=== PATIENT | male | born 1945 | race Caucasian/White ===

== ENCOUNTER 2018-06-07 15:13 | Emergency (ER) | payer OTHER ==
--- OUTSIDE RECORDS SUMMARY | 2018-06-07 15:15 | XMS REPORT | Clinical Summary ---
:1945 Author Organization [facility] Address [address] [place] [address] Care Team Providers Name Role Phone Asked, No Pcp Primary Care Provider Unavailable Allergies No Known Allergies Current Medications Prescription Sig. Disp. Refills Start End Date Status Date amitriptyline TK 1 T PO QPM 0 Active (ELAVIL) 100 MG 6 tablet naproxen TK 1 T PO TID 0 Active (NAPROSYN) 375 MG 7 tablet HYDROcodone-aceta TK 1 T PO QID 0 Active minophen (NORCO) 7 10-325 mg per tablet gabapentin TK 1 C PO TID 0 Active (NEURONTIN) 300 7 mg capsule DULoxetine Take 60 mg by mouth Active (CYMBALTA) 60 MG daily. capsule rosuvastatin Take 10 mg by mouth Active (CRESTOR) 10 MG daily. tablet testosterone INJECT 1 ML 0 Active cypionate INTRAMUSCULARLY Q 2 7 (DEPOTESTOTERONE WEEKS. CYPIONATE) 200 mg/mL injection tiZANidine Active (ZANAFLEX) 4 MG 8 tablet zolpidem CR TK 1 T PO HS PRN 0 Active (AMBIEN CR) 12.5 7 MG CR tablet tamsulosin Take 1 capsule (0.4 90 capsule 3 Active (FLOMAX) 0.4 mg mg total) by mouth 8 capsule,extended daily. release 24hrIndications: Enlarged prostate with urinary obstruction tamsulosin TAKE 1 CAPSULE(0.4 90 capsule 0 Active (FLOMAX) 0.4 mg MG) BY MOUTH DAILY 8 capsule,extended release 24hr tamsulosin Take 1 capsule (0.4 90 capsule 3 12/27/19 Discontinued (FLOMAX) 0.4 mg mg total) by mouth 7 18 capsule,extended daily. release 24hrIndications: Enlarged prostate with urinary obstruction sildenafil, Take 1 tablet (20 30 tablet 11 01/27/20 antihypertensive, mg total) by mouth 8 18 (REVATIO) 20 mg daily for 30 days. 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 Encounters Date Type Specialty Care Team Description 02/22/2018 Refill Urology Darien Montiel MD 12/28/2017 Telephone Urology Darien Montiel MD 12/27/2017 Office Visit Urology Darien Montiel MD Testicular hypofunction (Primary Dx); Benign non-nodular prostatic hyperplasia with lower urinary tract symptoms; Impotence of organic origin; Enlarged prostate with urinary obstruction after 06/06/2017 Social History Tobacco Use Types Packs/Day Years Used Date Never Smoker Smokeless Tobacco: Never Used Alcohol Use Drinks/Week oz/Week Comments No Sex Assigned at Date Recorded Not on file Last Filed Vital Signs Vital Sign Reading Time Taken Blood Pressure 113/83 12/27/2017 12:57 PM [employer]ITY TEAM [employer]AD Pulse 95 12/27/2017 12:57 PM [employer]ITY TEAM [employer]AD Temperature - - Respiratory Rate 18 12/27/2017 12:57 PM [employer]ITY TEAM [employer]AD Oxygen Saturation - - Inhaled Oxygen Concentration - - Weight 113 kg (250 lb) 12/27/2017 12:57 PM [employer]ITY TEAM LEAD Height 182.9 cm (6') 12/27/2017 12:57 PM [employer]URITY TEAM LEAD Body Mass Index 33.91 12/27/2017 12:57 PM [employer]URITY TEAM LEAD Plan of Treatment Date Type Specialty Care Team Description 01/02/2019 Office [place] [address] [address] [address] [place] [address] Health Maintenance Due Date Last Done Comments COLON CANCER SCREENING 1996 SHINGRIX VACCINE (#1) 1996 ZOSTER VACCINE 2006 PNEUMOCOCCAL POLYSACCHARIDE VACCINE AGE 65 AND OVER 2011 PNEUMOCOCCAL-13 2011 INFLUENZA VACCINE 06/26/2018 Procedures Procedure Name Priority Date/Time Associated Diagnosis Comments PROSTATE SPECIFIC Routine 12/27/2017 1:18 PM Benign non-nodular Results for this ANTIGEN [employer]ITY TEAM LEAD prostatic procedure are in hyperplasia with the results lower urinary tract section. symptoms after 06/06/2017 Results Prostate specific antigen (12/27/2017 1:18 PM) PSA 0.4 < OR=4.0 ng/mL [facility] Comment: The total PSA value from this assay system is standardized against the WHO standard. The test result will be approximately 20% lower when compared to the equimolar-standardized total PSA (Leah Raleigh). Comparison of serial PSA results should be interpreted with this fact in mind. This test was performed using the Siemens chemiluminescent method. Values obtained from different assay methods cannot be used interchangeably. PSA levels, regardless of value, should not be interpreted as absolute evidence of the presence or absence of disease. Specimen Blood Resulting Agency Comment Performing Organization Information: Site ID: [id number] Name: [facility] Address: [address] [place] [id number] Director: Kalani Haney MD Performing Organization Address City/State/Zipcode Phone Number [place] [phone] after 06/06/2017 Insurance Payer Benefit Plan / Group Subscriber ID Type Phone Address AETNA AETNA HMO,POS,EPO, MC/EC xxxxxxxxx HMO MEDICARE MEDICARE PART A AND B xxxxxxxxxx Medicare [place], [place] Work: [address] [phone] [address] Home: [phone] [facility]
--- NOTE | 2018-06-07 17:29 | EDPHYS ---
Physician Documentation [facility] Name: Clemente Hearn Age: 72 yrs Sex: Male : 1945 Arrival Date: 06/07/2018 Time: 15:16 Bed 7 Private MD: Reynaldo Moses ED Physician Rudy Booth HPI: 06/07 17:00 This 72 yrs old Male presents to ER via Ambulatory with complaints of pm1 Shoulder Pain, Arm Pain. 17:00 The patient or guardian complains of pain. right shoulder. Context: The problem was pm1 sustained at home, resulted from an unknown reason, The patient experiences decreased range of motion, The patient reports no obvious deformity. Onset: The symptoms/episode began/occurred 2 day(s) ago. Modifying factors: the symptoms are alleviated by nothing. Has been taking pain medications at home without improvement. Associated signs and symptoms: Pertinent negatives: abdominal pain, chest pain, neck pain, shortness of breath. Severity of symptoms: in the emergency department the symptoms are unchanged, despite home interventions. The patient has not experienced similar symptoms in the past. Historical: - Allergies: 15:29 No Known Allergies; sg - Home Meds: 15:29 Hydrocodone-Acetaminophen Oral [Active]; Naproxen Oral [Active]; gabapentin oral oral sg [Active]; - PMHx: 15:29 Back pain; sg - PSHx: 15:29 Back Sx; sg 15:40 back surgery L4, L5; ae1 - Immunization history:: Adult Immunizations up to date. - Social history:: Smoking status: Patient/guardian denies using tobacco. - Ebola Screening: : Patient negative for fever greater than or equal to 101.5 degrees Fahrenheit, and additional compatible Ebola Virus Disease symptoms Patient denies exposure to infectious person Patient denies travel to an Ebola-affected area in the 21 days before illness onset No symptoms or risks identified at this time. ROS: 17:00 Constitutional: Negative for fever, chills, and weight loss, Eyes: Negative for injury, pm1 pain, redness, and discharge, ENT: Negative for injury, pain, and discharge, Neck: Negative for injury, pain, and swelling, Cardiovascular: Negative for chest pain, palpitations, and edema, Respiratory: Negative for shortness of breath, cough, wheezing, and pleuritic chest pain, Abdomen/GI: Negative for abdominal pain, nausea, vomiting, diarrhea, and constipation, Back: Negative for injury and pain. 17:00 Skin: Negative for injury, rash, and discoloration, Neuro: Negative for headache, weakness, numbness, tingling, and seizure. 17:00 MS/extremity: Positive for pain, of the right shoulder, Negative for deformity. Exam: 17:00 Constitutional: This is a well developed, well nourished patient who is awake, alert, pm1 and in no acute distress. Head/Face: Normocephalic, atraumatic. Neck: Trachea midline, no thyromegaly or masses palpated, and no cervical lymphadenopathy. Supple, full range of motion without nuchal rigidity, or vertebral point tenderness. No Meningismus. Chest/axilla: Normal chest wall appearance and motion. Nontender with no deformity. No lesions are appreciated. Cardiovascular: Regular rate and rhythm with a normal S1 and S2. No gallops, murmurs, or rubs. Normal PMI, no JVD. No pulse deficits. Respiratory: Lungs have equal breath sounds bilaterally, clear to auscultation and percussion. No rales, rhonchi or wheezes noted. No increased work of breathing, no retractions or nasal flaring. Abdomen/GI: Soft, non-tender, with normal bowel sounds. No distension or tympany. No guarding or rebound. No evidence of tenderness throughout. Back: No spinal tenderness. No costovertebral tenderness. Full range of motion. Skin: Warm, dry with normal turgor. Normal color with no rashes, no lesions, and no evidence of cellulitis. 17:00 Musculoskeletal/extremity: Extremities: grossly normal except: noted in the right shoulder: FROM intact but painful above the height of his right shoulder, There is no evidence of deformity. Vital Signs: 15:29 BP 151 / 90; Pulse 99; Resp 17; Temp 97.7; Pulse Ox 96% on R/A; Weight 112.04 kg (R); sg Height 6 ft. 0 in. (182.88 cm) (R); Pain 10/10; 17:49 BP 139 / 78; Pulse 88; Resp 18; Pulse Ox 99% on R/A; ae1 15:29 Body Mass Index 33.50 (112.04 kg, 182.88 cm) sg MDM: 15:41 Patient medically screened. pm1 17:22 Data reviewed: vital signs. Data interpreted: Pulse oximetry: on room air is 96 %. pm1 Interpretation: normal. Counseling: I had a detailed discussion with the patient and/or guardian regarding: the historical points, exam findings, and any diagnostic results supporting the discharge/admit diagnosis, radiology results, the need for outpatient follow up, for definitive care, a orthopedic surgeon, to return to the emergency department if symptoms worsen or persist or if there are any questions or concerns that arise at home. 17:32 ED course: Patient has been taking Rosebud 10 mg QID, NSAID, and prednisone 10 mg bid. pm1 Took his last prednisone today that was from a left over prescription. Recommended continuation or Rosebud, NSAID. I will give patient Medrol dose pack since he has started prednisone. steroid maybe beneficial for impression of frozen shoulder. 06/07 15:41 Order name: Shoulder Right (2 View) XRAY pm1 Administered Medications: 17:42 Drug: predniSONE 60 mg Route: PO; ae1 17:42 Follow up: Response: Medication administered at discharge. ae1 Disposition: 18:23 Co-signature as Attending Physician, Rudy Booth MD I agree with the assessment and kdr plan of care. Disposition: 06/07/18 17:29 Discharged to Home. Impression: Pain in right shoulder. - Condition is Stable. - Discharge Instructions: Arthralgia, Shoulder Pain. - Prescriptions for Medrol (Santy) 4 mg Oral Tablets, Dose Pack - take 1 tablet by ORAL route as directed - follow package instructions; 1 packet. - Medication Reconciliation Form, Thank You Letter, Prescription Opioid Use form. - Follow up: Emergency Department; When: As needed; Reason: Worsening of condition. Follow up: Tristen Alejandra MD; When: 2 - 3 days; Reason: Recheck today's complaints, Continuance of care, Re-evaluation by your physician. - Problem is new. - Symptoms have improved. Signatures: Dispatcher [employer] EDMS Tristen Marion, RN RN Rudy Villafana MD MD [facility] Rigoberto Soriano, TEGAN AIR SAW OPERATOR pm1 Ash Us RN RN ae1 Corrections: (The following items were deleted from the chart) 17:50 17:29 06/07/2018 17:29 Discharged to Home. Impression: Pain in right shoulder. ae1 Condition is Stable. Forms are Medication Reconciliation Form, Thank You Letter, Antibiotic Education, Prescription Opioid Use. Follow up: Emergency Department; When: As needed; Reason: Worsening of condition. Follow up: Tristen Alejandra; When: 2 - 3 days; Reason: Recheck today's complaints, Continuance of care, Re-evaluation by your physician. Problem is new. Symptoms have improved. pm1
--- NOTE | 2018-06-07 17:29 | ER ---
Nurse's Notes [facility] Name: Clemente Hearn Age: 72 yrs Sex: Male : 1945 Arrival Date: 06/07/2018 Time: 15:16 Bed 7 Private MD: Reynaldo Moses Diagnosis: Pain in right shoulder Presentation: 06/07 15:26 Presenting complaint: Patient states: Right Shoulder pain that radiates to the right sg hand, pt stated that he takes Gabapentin, Hydrocodone and Naproxen for pain control of chronic back pain with multiple surgeries. pt denies injury, trauma. Transition of care: patient was not received from another setting of care. Onset of symptoms was June 07, 2018. Risk Assessment: Do you want to hurt yourself or someone else? Patient reports no desire to harm self or others. Initial Sepsis Screen: Does the patient meet any 2 criteria? No. Patient's initial sepsis screen is negative. Does the patient have a suspected source of infection? No. Patient's initial sepsis screen is negative. Care prior to arrival: None. 15:26 Method Of Arrival: Ambulatory sg 15:26 Acuity: FIONA 4 sg Historical: - Allergies: 15:29 No Known Allergies; sg - Home Meds: 15:29 Hydrocodone-Acetaminophen Oral [Active]; Naproxen Oral [Active]; gabapentin oral oral sg [Active]; - PMHx: 15:29 Back pain; sg - PSHx: 15:29 Back Sx; sg 15:40 back surgery L4, L5; ae1 - Immunization history:: Adult Immunizations up to date. - Social history:: Smoking status: Patient/guardian denies using tobacco. - Ebola Screening: : Patient negative for fever greater than or equal to 101.5 degrees Fahrenheit, and additional compatible Ebola Virus Disease symptoms Patient denies exposure to infectious person Patient denies travel to an Ebola-affected area in the 21 days before illness onset No symptoms or risks identified at this time. Screenin:42 Abuse screen: Denies threats or abuse. Nutritional screening: No deficits noted. ae1 Tuberculosis screening: No symptoms or risk factors identified. Fall Risk None identified. Assessment: 15:32 General: Appears in no apparent distress. uncomfortable, Behavior is cooperative. Pain: ae1 Complains of pain in anterior aspect of right shoulder Pain radiates to right arm. Neuro: Level of Consciousness is awake, alert, obeys commands, Oriented to person, place, time, situation. Cardiovascular: Heart tones S1 S2 present Patient's skin is warm and dry. Rhythm is regular. Respiratory: Airway is patent Respiratory effort is even, unlabored, Respiratory pattern is regular, symmetrical, Breath sounds are clear bilaterally. GI: No signs and/or symptoms were reported involving the gastrointestinal system. Abdomen is round. : No signs and/or symptoms were reported regarding the genitourinary system. EENT: No signs and/or symptoms were reported regarding the EENT system. Derm: Skin is normal. Musculoskeletal: Range of motion: limited in right shoulder Reports pain in anterior aspect of right shoulder and posterior aspect of right shoulder. Vital Signs: 15:29 BP 151 / 90; Pulse 99; Resp 17; Temp 97.7; Pulse Ox 96% on R/A; Weight 112.04 kg (R); sg Height 6 ft. 0 in. (182.88 cm) (R); Pain 10/10; 17:49 BP 139 / 78; Pulse 88; Resp 18; Pulse Ox 99% on R/A; ae1 15:29 Body Mass Index 33.50 (112.04 kg, 182.88 cm) sg ED Course: 15:16 Patient arrived in ED. sb2 15:16 Reynaldo Moses MD is Private Physician. sb2 15:28 Rigoberto Soriano NP is PHCP. pm1 15:28 Rudy Booth MD is Attending Physician. pm1 15:28 Triage completed. sg 15:28 Arm band placed on. sg 15:32 Ash sU, JAMES is Primary Nurse. ae1 15:40 Bed in low position. Patient is sitting in chair at bedside. ae1 16:52 X-ray completed. Portable x-ray completed in exam room. Patient tolerated procedure kw well. 16:54 Shoulder Right (2 View) XRAY In Process Unspecified. EDMS 17:28 Tristen Alejandra MD is Referral Physician. pm1 17:49 No provider procedures requiring assistance completed. Patient did not have IV access ae1 during this emergency room visit. Administered Medications: 17:42 Drug: predniSONE 60 mg Route: PO; ae1 17:42 Follow up: Response: Medication administered at discharge. ae1 Outcome: 17:29 Discharge ordered by . pm1 17:50 Discharged to home ambulatory. ae1 17:50 Condition: stable 17:50 Discharge instructions given to patient, Instructed on discharge instructions, follow up and referral plans. medication usage, Demonstrated understanding of instructions, Prescriptions given X 1. 17:50 Patient left the ED. ae1 Signatures: Dispatcher [employer] EDMS Tristen Marion RN RN Marylou Fisher Patrick, TEGAN PRESENTATION DESIGNER pm1 Ash Us RN RN ae1 Bernadette Chand sb2
[2018-06-07] MEDS ORDERED: predniSONE 20 MG TAB ONE (17:41)
--- NOTE | 2018-06-07 17:54 | RAD REPORT ---
EXAM DESCRIPTION: RAD - Shoulder Right 2 View - 06/07/2018 4:53 pm CLINICAL HISTORY: Right shoulder pain FINDINGS: No fracture or dislocation is seen. The bones are osteoporotic. A 20 millimeter calcification is present within the scapula. It is recommended that the patient have a nonemergent CT scan for further evaluation.
== END 2018-06-07 17:50 | disposition home or self-care (01) ==
LOC: ER 15:13
DX: M25.511 Pain in right shoulder (principal)
CPT/HCPCS: 99283; J7512